=== PATIENT | female | born 2000 | race Caucasian/White ===

== ENCOUNTER 2024-11-29 18:00 | Inpatient (IN) | payer BC ==
[2024-11-29 18:33] VITALS: BMI 33.1
[2024-11-29] MEDS ORDERED: Ondansetron PF 4 MG/2 ML Vial IVP PRN (19:14)
[2024-11-29] MEDS ORDERED: Methylergonovine 0.2 MG/ML VIAL IM PRN (19:14)
[2024-11-29] MEDS ORDERED: hydrALAZINE 20 MG/ML VIAL SLOW IVP PRN (19:14)
[2024-11-29] MEDS ORDERED: HYDROcodone/Acetaminophen 5/325 mg Tablet PO PRN (19:14)
[2024-11-29] MEDS ORDERED: Acetaminophen 500 MG TAB PO PRN (19:14)
[2024-11-29] MEDS ORDERED: Diphenoxylate HCl/Atropine Tablet PO PRN (19:14)
[2024-11-29] MEDS ORDERED: Carboprost 250 MCG/ML AMP IM PRN (19:14)
[2024-11-29] MEDS ORDERED: Lidocaine 1% (PF) 30 ML VIAL SC PRN (19:14)
[2024-11-29] MEDS ORDERED: Ibuprofen 800 MG TAB PO PRN (19:14)
[2024-11-29] MEDS ORDERED: Oxytocin 30 units/NS 500 ML 500 ML IV SCH (19:15)
[2024-11-29 19:24] LABS: Hematocrit 33.0 % (34.9-44.5); Hemoglobin 11.2 g/dL (12.0-15.5); Mean Corpuscular Hemoglobin 31.8 pg (27.0-33.0); Mean Corpuscular Volume 93.8 fL (81.6-98.3); Platelet Count 188 10x3/uL (150-450); Red Blood Cell (RBC) Count 3.52 10x6/uL (3.90-5.03); White Blood Cell (WBC) Count 6.87 10x3/uL (3.5-10.5)
[2024-11-29 19:53] LABS: Hep B Surf Ag - L&D Non-Reactive S/CO (NonReactive)
[2024-11-29 19:54] LABS: Syphilis Antibody Index 0.04 S/CO (<1.00 Non-Reactive)
[2024-11-30] MEDS: Penicillin G Potassium 5 MILL.UNITS in Sodium Chloride 0.9% 100 ML IVPB SCH (05:55)
[2024-11-30] MEDS: Oxytocin 30 units/NS 500 ML 500 ML IV SCH (06:00)
[2024-11-30] MEDS: fentaNYL/Ropivacaine Epidural 100 ML ONE (07:12)
[2024-11-30] MEDS ORDERED: Ondansetron PF 4 MG/2 ML Vial IVP PRN ×2 (07:26→18:06)
[2024-11-30] MEDS ORDERED: Acetaminophen 325 MG TAB PO PRN (07:26)
[2024-11-30] MEDS ORDERED: diphenhydrAMINE 50 MG/ML VIAL IVP PRN (07:26)
[2024-11-30] MEDS ORDERED: Communication Order-Pharmacy FS SCH (07:30)
[2024-11-30] MEDS ORDERED: fentaNYL 2 mcg/Ropivacaine 0.2% Epidural 100 ML CADD EPIDURAL SCH (07:30)
[2024-11-30] MEDS: Penicillin G 2.5 MILL.units 2.5 MILL.UNITS in Premix 1 BAG IVPB SCH (09:47)
[2024-11-30] MEDS ORDERED: hydrALAZINE 20 MG/ML VIAL SLOW IVP PRN (18:06)
[2024-11-30] MEDS ORDERED: Preparation H Ointment 28 GM TUBE PR PRN (18:06)
[2024-11-30] MEDS ORDERED: HYDROcodone/Acetaminophen 5/325 mg Tablet PO PRN ×2 (18:06)
[2024-11-30] MEDS ORDERED: Milk Of Magnesia 30 ML UDCUP PO PRN (18:06)
[2024-11-30] MEDS ORDERED: Lanolin Ointment 7 GM TUBE TOP PRN (18:06)
[2024-11-30] MEDS ORDERED: Bisacodyl 10 MG SUPP PR PRN (18:06)
[2024-11-30] MEDS ORDERED: diphenhydrAMINE 25 MG CAP PO PRN (18:06)
[2024-11-30] MEDS: Ibuprofen 800 MG TAB PO SCH (22:14)
[2024-11-30] MEDS: Benzocaine-Menthol 82.5 ML CAN TOP PRN (22:17)
[2024-11-30] MEDS: Ferrous Sulfate 325 MG TAB PO SCH (22:21)
[2024-12-01] MEDS: Ferrous Sulfate 325 MG TAB PO SCH (07:35)
[2024-12-01] MEDS: Measles/Mumps/Rubella 10 MCG/0.5 ML VIAL SC ONE (08:33)
[2024-12-01] MEDS: Boostrix 0.5 ML (Tdap) VIAL (>/=7 yrs of age) IM ONE (08:33)
[2024-12-02 08:08] VITALS: BP 105/71; TEMP 97.8
== END 2024-12-02 13:31 | disposition home or self-care (01) | DRG 807 ==
LOC: CSHLD 18:04 → CSHPP 11-30 19:35
PROVIDERS: ADMIT Student in an Organized Health Care Education/Training Program; ATTEND Student in an Organized Health Care Education/Training Program
PROC: 10D07Z6 Extraction of Products of Conception, Vacuum, Via Natural or Artificial Opening (ICD-10-PCS; principal; 2024-11-30)
PROC: 0KQM0ZZ Repair Perineum Muscle, Open Approach (ICD-10-PCS; 2024-11-30)
PROC: 10907ZC Drainage of Amniotic Fluid, Therapeutic from Products of Conception, Via Natural or Artificial Opening (ICD-10-PCS; 2024-11-30)
PROC: 10S07ZZ Reposition Products of Conception, Via Natural or Artificial Opening (ICD-10-PCS; 2024-11-30)
PROC: 3E033VJ Introduction of Other Hormone into Peripheral Vein, Percutaneous Approach (ICD-10-PCS; 2024-11-30)
DX: O48.0 Post-term pregnancy (principal); Z37.0 Single live birth; Z3A.40 40 weeks gestation of pregnancy; O99.824 Streptococcus B carrier state complicating childbirth; O76 Abnormality in fetal heart rate and rhythm complicating labor and delivery; O70.1 Second degree perineal laceration during delivery
CPT/HCPCS: 36415; 51702; 85027; 86780; 86850; 86900; 86901; 87340; J2540; J2590; J7120